=== PATIENT | male | born 1985 | race Caucasian/White ===

== ENCOUNTER 2017-03-29 23:37 | Emergency (ER) | payer BC, OTHER ==
[2017-03-29 23:41] VITALS: PULSE 77; RESP 20; TEMP 97.7; O2SAT 100
[2017-03-30 00:25] VITALS: BP 134/86
== END 2017-03-30 00:24 | disposition home or self-care (01) ==
LOC: ED 23:37
DX: S93.602A Unspecified sprain of left foot, initial encounter (principal); X50.1XXA Overexertion from prolonged static or awkward postures, initial encounter; Y93.68 Activity, volleyball (beach) (court)
CPT/HCPCS: 73630; 99282